=== PATIENT | male | born 1995 | race Caucasian/White ===

== ENCOUNTER 2022-10-31 13:16 | Emergency (ER) | payer MEDICAID ==
[~2022-10-31] VITALS: Ht 175.3 cm; Wt 85.0 kg
[~2022-10-31 13:16] MED LIST: AMOX-100 PO; TEST200V33 IM; THY60T PO
[2022-10-31 13:24] VITALS: BP 129/84
--- NOTE | 2022-10-31 16:17 | NUR ---
Pt's f/c w/ 1 stitch removed w/ 600cc urine out. DC instructions given to pt and pt amb out of ED w/ all belongings.
== END 2022-10-31 16:32 | disposition home or self-care (01) ==
LOC: ER 13:16
DX: Z46.6 Encounter for fitting and adjustment of urinary device (principal); F41.9 Anxiety disorder, unspecified; F32.9 Major depressive disorder, single episode, unspecified; F12.90 Cannabis use, unspecified, uncomplicated; Z56.0 Unemployment, unspecified; Z79.899 Other long term (current) drug therapy
CPT/HCPCS: 99281

== ENCOUNTER 2025-03-09 22:35 | Emergency (ER) | payer MEDICAID ==
[~2025-03-09] VITALS: Ht 175.3 cm; Wt 98.0 kg
[2025-03-09] MEDS ORDERED: ASPI-1264 PO (23:14)
[2025-03-09] MEDS ORDERED: FAMO-280 PO (23:14)
[2025-03-09] MEDS ORDERED: ROSU5TAB51 PO (23:14)
[2025-03-09] MEDS ORDERED: PROP10TA10 PO (23:14)
[2025-03-09] MEDS ORDERED: ACET-890 PO (23:14)
[2025-03-09 23:15] LABS: CREATININE 0.80 MG/DL (0.60-1.10); TOTAL CARBON DIOXIDE 25.2 MMOL/L (24-32); eCRCL 135 ML/MIN; eGFR > 90 ML/MIN
[2025-03-09 23:16] LABS: MEAN PLATELET VOLUME 8.9 FL (7.4-10.4); RED CELL DISTRIBUTION WIDTH 12.9 % (11.5-14.5)
[2025-03-09] MEDS ORDERED: CETI5TAB21 PO (23:16)
[2025-03-09] MEDS ORDERED: SEMA0.253 SUBCUT (23:16)
[2025-03-09] MEDS ORDERED: VITD400T PO (23:16)
--- NOTE | 2025-03-09 23:27 | RADIOLOGY REPORT ---
CHEST RADIOGRAPH Indication: sepsis Technique: 1 view Comparison: None FINDINGS: Lines and Tubes: None Lungs: No focal consolidation. Pleura: No effusion or pneumothorax. Cardiomediastinal contours: Unremarkable. Bones: No acute osseous abnormality. IMPRESSION: 1. No acute cardiopulmonary abnormality.
[2025-03-10 00:21] LABS: LEUKOCYTE ESTERASE ,URINE NEGATIVE (Neg); NITRITES, URINE NEGATIVE (Neg); OCCULT BLOOD,URINE NEGATIVE (Neg)
[2025-03-10 00:24] LABS: UA COLLECTION TYPE CLN CATCH MIDSTREAM
--- NOTE | 2025-03-10 04:36 | Physician Documentation ---
History of Present Illness ~ Chief Complaint: Post-operative complication Stated Complaint: NEED IV ANTIBIOTICS Time Seen by MD: 04:12 OK to notify your PCP?: Yes Primary Medical Doctor: [facility] Source: patient, RN/, RN notes reviewed, old records Mode of Arrival: POV Exam Limitations: no limitations [facility] Bed 07 This patient is a 30 y/o male who presents to ED for possible post-op infection. Patient is transgender and had penile implant placed two months ago. He states he is now experiencing worsening redness, swelling, and pain to his penis which started today. Patient states he did call his surgeon who told him to go into ED for antibiotics, and that he would also call him a prescription in the morning for additional antibiotics. Patient was asked and states he did feel feverish prior to arrival, which he took ibuprofen for. Surgeon is Dr. Enrrique Hoffmann at [facility]. Patient denies any other associated symptoms at this time. Patient denies any other alleviating or exacerbating factors. Medication Reconciliation Allergies: Coded Allergies: No Known Allergies (Unverified , 06/15/11) Scheduled Aspirin* (Aspirin*), 1 TAB PO DAILY, (Reported) Cetirizine HCl (Cetirizine HCl), 1 TAB PO DAILY, (Reported) Cholecalciferol (Vitamin D3) (Vitamin D), 1 TAB PO DAILY, (Reported) Famotidine (Famotidine), 1 TAB PO DAILY, (Reported) Propranolol Hcl* (Inderal*), 1 TAB PO Q12H, (Reported) Rosuvastatin Calcium (Rosuvastatin Calcium), 1 TAB PO DAILY, (Reported) Semaglutide (Wegovy), 0.25 MG SUBCUT Q7D, (Reported) Testosterone Cypionate (TESTOSTERONE CYPIONATE 200mg/ml 10ml vial), 0.55 ML IM Q7D, (Reported) Thyroid,Pork* ([place] Thyroid*), 90 MG PO DAILY, (Reported) Scheduled PRN Acetaminophen (Tylenol), 1-2 TAB PO QID PRN PRN for pain or fever, (Reported) Discontinued Medications Amoxicillin Trihydrate (Amoxicillin), 1 CAP PO TID, (Reported) Discontinued Reason: patient no longer taking Past Medical History Past Medical History: *PSYCH*, Anxiety, Depression Past Surgical History: no surgical history Smoking Status: Never smoker Alcohol Use: None Drug Use: marijuana Lives with: Mother Lives In: Home Occupation: unemployed Review of Systems All Other Systems at this time: Reviewed and Negative Physical Exam Vital Signs: RN Vital Signs have been reviewed: Yes, Temperature: 98.1, Source: Oral, Heart Rate: 71, Respiratory Rate: 12, BP: 108/78, Pulse Oximetry: 96, Weight: 98.000 Physical Exam General: The patient is well developed, well nourished, nontoxic appearing and is in no acute distress. Skin: (SEE ) Stem, warm and dry with no rashes. HEENT: Head was normocephalic and atraumatic. Eyes - pupils equal, round, reactive to light and accommodation. Extraocular movements were intact. Conjunctivae were nonicteric. The mouth and oropharynx were clear with moist mucous membranes. There were no pharyngeal exudates or erythema. Neck: Supple and nontender. There was no jugular venous distention, lymphadenopathy, thyromegaly or masses. Chest: Clear to auscultation bilaterally without wheezes, rales or rhonchi. No accessory muscle use. No dullness to percussion. Heart: Rate regular and rhythmic. S1, S2. No murmurs. Palpation of the chest wall was normal. No rubs or thrills. Abdomen: Soft, nontender and nondistended. Positive bowel sounds. No guarding or rebound. No hepatosplenomegaly or palpable masses. : Penis is warm to touch, red, and swollen. Extremities: No cyanosis, clubbing or edema. The patient moves all extremities. Pulses were equal and symmetric. Neurologic: Motor and sensation grossly intact. A & O x4. Psychologic: The patient was oriented to person, place and time. Progress Results/Orders Reviewed/noted all lab results: Yes Results/Orders Orders - LEONARD TOBIAS MD Culture Blood (03/09/25 22:43) Chest,Single View (03/09/25 22:43) Monitor (03/09/25 22:43) Oxygen (03/09/25 22:43) Saline Lock (03/09/25 22:43) Culture Blood (03/10/25 04:32) Vancomycin 1,500mg Inj. (Vancomycin 1,50 (03/10/25 04:37) Completed Orders - LEONARD TOBIAS MD Cbc/Diff (03/09/25 22:43) Urinalysis, Cult If Indicated (03/09/25 22:43) Chest,Single View (03/09/25 22:43) Procalcitonin (03/09/25 22:43) BMP (03/09/25 22:43) Lacticsepsis (03/09/25 22:43) Ibuprofen Tablet (Motrin Tablet) (03/10/25 01:55) Normal Saline 1000ml (0.9% Sodium Chlori (03/10/25 04:35) Ceftriaxone 2gm/D5w 50ml Bag (Rocephin 2 (03/10/25 04:35) Vancomycin/H2o 1.5g/300ml Pb (Vancomycin (03/10/25 05:09) Medications Received in ER Medications (Trade) Dose Ordered Sig/Efren Route PRN Reason Start Time Stop Time Status Last Admin Dose Admin (Motrin tablet) 200 mg ONCE ONCE PO 03/10/25 01:55 03/10/25 01:56 DC 03/10/25 02:27 200 MG (0.9% sodium chloride (NS) 1000ml IV soln) 1,000 ml ONCE ONCE IV 03/10/25 04:35 03/10/25 04:36 DC 03/10/25 05:13 1,000 ML Ceftriaxone Sodium/Dextrose 50 ml @ 100 mls/hr ONCE ONCE IV 03/10/25 04:35 03/10/25 05:04 DC 03/10/25 05:06 100 MLS/HR Vital Signs 03/09/25 03/09/25 03/09/25 03/10/25 22:41 23:02 23:03 00:49 Temp 97.3 99.0 98.1 Pulse 93 88 64 Resp 15 16 16 14 B/P (MAP) 125/86 119/81 (94) 119/81 (94) Pulse Ox 97 99 97 03/10/25 03/10/25 03/10/25 01:21 03:23 04:09 Temp 98.1 98.1 98.1 Pulse 72 71 71 Resp 10 10 12 B/P (MAP) 119/81 (94) 108/80 (89) 108/78 (88) Pulse Ox 96 98 96 Laboratory Tests Test 03/09/25 22:59 03/10/25 00:05 White Blood Count 9.0 Red Blood Count 4.60 L Hemoglobin 14.3 Hematocrit 42.1 Mean Corpuscular Volume 91.4 Mean Corpuscular Hemoglobin 31.0 Mean Corpuscular Hemoglobin Concent 33.9 Red Cell Distribution Width 12.9 Platelet Count 240 Mean Platelet Volume 8.9 Neutrophils (%) (Auto) 72.5 Lymphocytes (%) (Auto) 17.8 L Monocytes (%) (Auto) 8.9 Eosinophils (%) (Auto) 0.4 Basophils (%) (Auto) 0.4 Neutrophils # (Auto) 6.5 Lymphocytes # (Auto) 1.6 Monocytes # (Auto) 0.8 Eosinophils # (Auto) 0.0 Basophils # (Auto) 0.0 CBC Comment Sodium Level 139 Potassium Level 3.6 Chloride Level 104 Carbon Dioxide Level 25.2 Anion Gap 10 Blood Urea Nitrogen 21 H Creatinine 0.80 Estimated GFR/1.73 m2 > 90 BUN/Creatinine Ratio 26.3 H Glucose Level 91 Lactic Acid Level 0.6 Calcium Level 9.2 Albumin 4.2 Procalcitonin < 0.05 Chemistry Comments Urine Specimen Description Cln catch midstream Urine Color Yellow Urine Clarity Clear Urine pH 6.0 Urine Specific [place] 1.020 Urine Protein Negative Urine Glucose (UA) Negative Urine Ketones Trace H Urine Occult Blood Negative Urine Nitrite Negative Urine Bilirubin Negative Urine Urobilinogen 0.2 Urine Leukocyte Esterase Negative Urine Culture Indicated Not ind Volume Urine Centrifuged 10 ml Urine Comment Microbiology Date/Time Source Procedure Growth Status 03/09/25 23:24 Blood Arm Left Blood Culture - Preliminary NEGATIVE (LESS THAN 24 HOURS) Resulted Re-Evaluation Re-Evaluation : Re-Evaluation: Improved Progress Patient was seen and examined. Patient is given reassurance. Patient is penile implant was red and inflamed. Patient was given antibiotics. He is surgeon has already written prescriptions for the patient but recommended IV antibiotics. Patient received both vancomycin and Rocephin and was discharged home. Patient received pain medications as well but no prescriptions were provided since his surgeon already sent the medications. Patient appears well. Laboratory work shows a WBC of 9.0 without any left shift which is reassuring as far as infect ion goes no anemia. Chemistry within normal limits. Lactic acid negative at 0.6. Procalcitonin negative at 0.05. Urinalysis is within normal limits with a specific gravity 1.020. After antibiotics given patient was then discharged home. Continuous telemetry monitor interpretation shows normal sinus rhythm heart rate 90s, no ectopy, normal, my interpretation. Pulse oximetry monitor interpretation shows normal oxygenation at 97% room air, normal, my interpretation. EKG/XRAY/CT/US/VASC/MRI Chest X-Ray : Interpreted By: both Additional Comments [address] [facility], [facility] [id number] DIAGNOSTIC RADIOLOGY Patient: RUSS PERALES Medical Record: [id number] MEDICAL CENTER : 1995, Age: 30 Sex: Male Location: ER Patient Status: [facility] ER Service Date/Time: 03/09/252242 Ordering Physician: LEONARD TOBIAS MD Exam: CHEST,SINGLE VIEW CHEST RADIOGRAPH Indication: sepsis Technique: 1 view Comparison: None FINDINGS: Lines and Tubes: None Lungs: No focal consolidation. Pleura: No effusion or pneumothorax. Cardiomediastinal contours: Unremarkable. Bones: No acute osseous abnormality. IMPRESSION: 1. No acute cardiopulmonary abnormality. Electronically Signed by:ANUSHA STARR MD Date & Time: 03/09/252323 Dictated by: ANUSHA STARR MD Dictation date and time: 03/09/252323 Primary Care Provider: NO PRIMARY CARE PROVIDER cc: LEONARD TOBIAS MD ~ IMAGES REVIEWED BY EDMD DR. TOBIAS WHO AGREES WITH ABOVE FINDINGS Medical Decision Making Additional info obtained from: old records Genital Diff Dx:Considerations: Include: Abscess, Balanitis, Balanoposthitis, Cellulitis, Epididymitis, Luis Manuel's gangrene Departure Time of Disposition: 04:39 Disposition: 01 HOME / SELF CARE / HOMELESS Impression: Primary Impression: Penile cellulitis Condition: Stable Discharge Instructions: Cellulitis, Adult Referrals: NO PRIMARY CARE PROVIDER (PCP) Education Educated: Patient Educated regarding: diagnosis, treatment, need for follow up Signature Scribe Signature: Scribed for Leonard Tobias MD by Mili De Souza 03/10/25 04:39 Attestation: The note accurately reflects work and decisions made by me.Leonard Tobias MD 03/10/25 04:36 LEONARD TOBIAS MD Mar 10, 2025 04:36
[2025-03-10] MEDS: CefTRIAXone 2gm/D5W 50ml BAG 50 ML IV ONE (05:06)
[2025-03-10] MEDS: normal saline 1000ML IV soln IV ONE (05:13)
[2025-03-10 05:15] VITALS: TEMP 98.1
[2025-03-10] MEDS: VANCOMYCIN/H2O 1.5g/300mL PB 300 ML IV ONE (05:18)
[2025-03-10] MEDS: VANCOMYCIN 1,500MG inj. 1,500 MG in normal saline 500ml IV soln 300 ML IV STA (05:26)
[2025-03-10 07:44] VITALS: BP 126/95; PULSE 72; RESP 16; O2SAT 98
== END 2025-03-10 07:46 | disposition home or self-care (01) ==
LOC: ER 22:36
DX: N48.22 Cellulitis of corpus cavernosum and penis (principal); F12.90 Cannabis use, unspecified, uncomplicated; F41.9 Anxiety disorder, unspecified; F32.A Depression, unspecified; Z79.82 Long term (current) use of aspirin; Z79.899 Other long term (current) drug therapy; Z56.0 Unemployment, unspecified
CPT/HCPCS: 36415; 71045; 80048; 81003; 83605; 84145; 85025; 87040; 96365; 96366; 96368; 99285; J0696; J3373; J7030; J7040; 96361